=== PATIENT | female | born 1980 | race Caucasian/White ===

== ENCOUNTER 2023-09-17 17:14 | Emergency (ER) | payer OTHER ==
[~2023-09-17] VITALS: Ht 162.6 cm; Wt 56.7 kg
[2023-09-17] MEDS ORDERED: PHENOBARBITAL SODIUM 130 MG/1 ML DISP.SYRIN ONE (17:53)
[2023-09-17] MEDS: PHENOBARBITAL SODIUM 130 MG/1 ML DISP.SYRIN IV ONE (18:04)
[2023-09-17 18:09] LABS: *BILIRUBIN,URIN NEGATIVE (NEGATIVE); *BLOOD, URINE NEGATIVE (NEGATIVE); *CLARITY,URINE CLEAR (CLEAR); *KETONES,URINE NEGATIVE (NEGATIVE); *PROTEIN,URINE NEGATIVE (NEGATIVE); *UROBILINOGEN,URINE 0.2 E.U./dl (NORMAL); LEUKOCYTE ESTERASE ,URINE NEGATIVE (NEGATIVE); NITRITE, URINE NEGATIVE (NEGATIVE); PH,URINE 5.5 (5.0-8.0); UGLUCOSE NEGATIVE (NEGATIVE)
[2023-09-17 18:09] LABS: BASOPHILS # (AUTO) 0.1 K/UL (0.0-0.2); BASOPHILS % (AUTO) 0.7 % (0.0-2.0); EOSINOPHILS # (AUTO) 0.2 K/uL (0.0-0.7); EOSINOPHILS % (AUTO) 2.5 % (0.0-7.0); HEMATOCRIT 41.9 % (31.2-41.9); HEMOGLOBIN 14.1 g/dL (10.9-14.3); LYMPHOCYTES # (AUTO) 3.9 K/uL (0.8-4.8); LYMPHOCYTES % (AUTO) 42.8 % (20.5-51.5); MEAN CORPUSCULAR HEMOGLOBIN 34.4 uug (24.7-32.8); MEAN CORPUSCULAR HGB CONC 34 g/dL (32.3-35.6); MEAN CORPUSCULAR VOLUME 102.3 fL (75.5-95.3); MONOCYTES # (AUTO) 0.9 K/uL (0.1-1.30); NEUTROPHILS # (AUTO) 4.1 K/uL (1.8-8.9); PLATELET COUNT (AUTO) 308 K/uL (179-408); RED BLOOD CELL COUNT(AUTO) 4.09 MIL/uL (3.63-4.92); RED CELL DISTRIBUTION WIDTH 14.9 % (12.3-17.7); WHITE BLOOD COUNT (AUTO) 9.2 K/uL (3.8-11.8)
[2023-09-17 18:11] LABS: DIFFERENTIAL COMMENT 1
[2023-09-17 18:12] LABS: *COLOR,URINE STRAW (YELLOW)
[2023-09-17 18:13] LABS: *URINE HCG, QUAL NEGATIVE (NEGATIVE)
[2023-09-17 18:15] LABS: CALCIUM 8.4 mg/dL (8.5-10.1); CARBON DIOXIDE 27 mmol/L (21-32); CHLORIDE 110 mmol/L (98-107); CREATININE 0.7 mg/dL (0.6-1.3); GLUCOSE 91 mg/dL (74-106); SODIUM SERUM 147 mmol/L (136-145); UREA NITROGEN, BLOOD 9 mg/dL (7-18)
[2023-09-17 18:17] LABS: AMMONIA 17 umol/L (11-32)
[2023-09-17 18:21] LABS: ETHANOL 300 MG/DL (0-10)
[2023-09-17 18:24] LABS: *AMPHETAMINE, URINE NEGATIVE (NEGATIVE); *BARBITURATE, URINE NEGATIVE (NEGATIVE); *BENZODIAZEPINE, URINE NEGATIVE (NEGATIVE); *CANNABINOID, URINE NEGATIVE (NEGATIVE); *COCCAINE, URINE NEGATIVE (NEGATIVE); *OPIATE, URINE NEGATIVE (NEGATIVE); *PHENCYCLIDINE SCREEN,URINE NEGATIVE (NEGATIVE)
[2023-09-17 18:24] LABS: ACETAMINOPHEN < 2.0 ug/mL (10-30); ALANINE AMINOTRANSFERASE 58 U/L (14-59); ALBUMIN 3.6 g/dL (3.4-5.0); ALKALINE PHOSPHATASE 131 U/L (50-136); ASPARTATE AMINOTRANSFERASE 27 U/L (15-37); BILIRUBIN,DIRECT 0.1 mg/dL (0.0-0.2); BILIRUBIN,TOTAL 0.1 mg/dL (0.2-1.0); TOTAL PROTEIN, SERUM 7.2 g/dL (6.4-8.2)
[2023-09-17 18:25] LABS: FENTANYL, URINE NEGATIVE (NEGATIVE)
[2023-09-17] MEDS ORDERED: THIAMINE HCL 200 MG/2 ML VIAL ONE (18:50)
[2023-09-17] MEDS: IV NORMAL SALINE 1000 ML BAG IV ONE (18:51)
[2023-09-17] MEDS: THIAMINE HCL 200 MG/2 ML VIAL IV ONE (18:51)
[2023-09-17] MEDS ORDERED: DIAZEPAM 10 MG/2 ML DISP.SYRIN ONE (20:07)
[2023-09-17] MEDS: DIAZEPAM 10 MG/2 ML DISP.SYRIN IV ONE (20:10)
[2023-09-17] MEDS: IV D5 1/2 NS 1000 ML 1,000 ML IV ONE (20:45)
[2023-09-17] MEDS ORDERED: KETOROLAC TROMETHAMINE 30 MG INJ ONE (20:59)
[2023-09-17] MEDS ORDERED: LORAZEPAM 2 MG/1 ML VIAL ONE (20:59)
[2023-09-17] MEDS: KETOROLAC TROMETHAMINE 30 MG INJ IVP ONE (21:00)
[2023-09-17] MEDS: LORAZEPAM 2 MG/1 ML VIAL IV ONE (21:00)
[2023-09-17] MEDS ORDERED: CYANOCOBALAMIN 1000 MCG/ML VIAL ONE (21:18)
[2023-09-17] MEDS: CYANOCOBALAMIN 1000 MCG/ML VIAL IM ONE (21:20)
[2023-09-17] MEDS ORDERED: LORAZEPAM 0.5 MG TABLET ONE (21:54)
[2023-09-17] MEDS: LORAZEPAM 0.5 MG TABLET PO ONE (21:55)
[2023-09-17] MEDS ORDERED: LORA0.5T48 PO (22:19)
[2023-09-17 22:39] VITALS: BP 117/81; TEMP 98.1; O2SAT 97
== END 2023-09-17 22:35 | disposition home or self-care (01) ==
LOC: ER 17:15
DX: F10.229 Alcohol dependence with intoxication, unspecified (principal); I48.91 Unspecified atrial fibrillation; R10.2 Pelvic and perineal pain; J45.909 Unspecified asthma, uncomplicated; Z79.899 Other long term (current) drug therapy; Y90.0 Blood alcohol level of less than 20 mg/100 ml
CPT/HCPCS: 80076; 80048; 81003; 82140; 84703; 85025; 85730; 84484; 36415; 93005 ×2; 99284; 96361 ×2; 96374; 96375; 96372; 80299; 80320; 80307; J3420; J3360; J1885; J2060; J2560; J3411; J7040 ×2; A4606; A4663; G0480